=== PATIENT | female | born 1975 | race Caucasian/White ===

== ENCOUNTER → 2016-07-11 | Outpatient (CLI) | payer OTHER ==
[~2016-07-11] MED LIST: BACL-19 PO; OXYC-229 PO; OXYC5CAP4 PO; TAMS-11 PO
[2016-07-11 08:04] LABS: HEMOGLOBIN 14.4 g/dL (11.7-16.4)
== END | disposition home or self-care (01) ==
LOC: LAB 07:47
PROVIDERS: ATTEND Nurse Practitioner
DX: R53.83 Other fatigue (principal)
CPT/HCPCS: 36415; 85025; 86140; 86663; 86664; 86665

== ENCOUNTER → 2016-07-13 | Outpatient (CLI) | payer OTHER | END | disposition home or self-care (01) | LOC: RAD 11:10 | PROVIDERS: ATTEND Genetic Counselor, MS | DX: N20.0 Calculus of kidney (principal) | CPT/HCPCS: 76700 ==

== ENCOUNTER → 2016-07-22 | Outpatient (CLI) | payer OTHER | END | disposition home or self-care (01) | LOC: CFH 10:59 | PROVIDERS: ATTEND Obstetrics & Gynecology | DX: Z12.31 Encounter for screening mammogram for malignant neoplasm of breast (principal) | CPT/HCPCS: 77063; G0202 ==

== ENCOUNTER 2016-09-28 07:51 | Emergency (ER) | payer OTHER ==
[~2016-09-28] VITALS: Ht 177.8 cm; Wt 82.5 kg
[2016-09-28 07:53] VITALS: BP 128/91
== END 2016-09-28 09:20 | disposition home or self-care (01) ==
LOC: ED 08:33
DX: S50.02XA Contusion of left elbow, initial encounter (principal); S54.22XA Injury of radial nerve at forearm level, left arm, initial encounter; W01.0XXA Fall on same level from slipping, tripping and stumbling without subsequent striking against object, initial encounter; Y93.01 Activity, walking, marching and hiking; Y92.89 Other specified places as the place of occurrence of the external cause; Y99.8 Other external cause status
CPT/HCPCS: 99284

== ENCOUNTER 2016-09-30 10:30 | Day surgery (SDC) | payer OTHER ==
[2016-09-30] MEDS ORDERED: OMNIPAQUE 300 MG/ML, 10ML VIAL ONE (11:00)
[2016-09-30] MEDS ORDERED: BUPIVACAINE/PF 0.5% ONE (11:14)
[2016-09-30] MEDS ORDERED: methylPREDNISolone*ACETATE* 80 MG/ML ONE (11:15)
[2016-09-30] MEDS ORDERED: methylPREDNISolone *ACETATE* 40 MG/ML ONE (11:15)
== END 2016-09-30 17:00 | disposition home or self-care (01) ==
LOC: RAD 10:30
PROVIDERS: ATTEND Anesthesiology Pain Medicine
DX: G51.3 Clonic hemifacial spasm (principal)
CPT/HCPCS: 64479; 64480; C1729; J1030; J1040; J3490; Q9967

== ENCOUNTER → 2016-12-09 | Outpatient (CLI) | payer BC, OTHER ==
[~2016-12-09] MED LIST changes: -OXYC-229 PO; +OXYC-307 PO; +OXYC5CAP2 PO; -OXYC5CAP4 PO
== END | disposition home or self-care (01) ==
LOC: CVU 12:47
PROVIDERS: ATTEND Internal Medicine Cardiovascular Disease
DX: I83.813 Varicose veins of bilateral lower extremities with pain (principal)
CPT/HCPCS: 93922; 93970

== ENCOUNTER → 2017-05-22 | Outpatient (CLI) | payer OTHER ==
[2017-05-22 07:11] LABS: BASOPHILS # (AUTO) 0.03 x10^3/uL (0-0.1); BASOPHILS % (AUTO) 1 % (0-1); EOSINOPHILS # (AUTO) 0.12 x10^3/uL (0-0.4); EOSINOPHILS % (AUTO) 2 % (1-7); LYMPHOCYTES # (AUTO) 1.36 x10^3/uL (1-3.4); LYMPHOCYTES % (AUTO) 24 % (22-44); MD NO; MEAN CORPUSCULAR HEMOGLOBIN 32.6 pg (27.0-34.8); MEAN CORPUSCULAR HGB CONC 33.5 g/dL (32.4-35.8); MEAN CORPUSCULAR VOLUME 97.5 fL (80-100); MEAN PLATELET VOLUME 9.2 fL (7.4-10.4); MONOCYTES # (AUTO) 0.32 x10^3/uL (0.2-0.8); MONOCYTES % (AUTO) 6 % (2-9); NEUTROPHILS # (AUTO) 3.89 x10^3/uL (1.8-6.8); NEUTROPHILS % (AUTO) 68 % (42-75); PLATELET COUNT 197 x10^3/uL (130-400); RED BLOOD COUNT 4.48 x10^6/uL (3.82-5.3); RED CELL DISTRIBUTION WIDTH 13.4 % (9.6-15.2)
[2017-05-22 07:25] LABS: ALANINE AMINOTRANSFERASE 22 U/L (12-78); ALBUMIN 3.8 g/dL (3.4-5.0); ANION GAP 7 mmol/L (5-15); CALCIUM 8.8 mg/dL (8.5-10.1); CHLORIDE 110 mmol/L (98-107); CHOLESTEROL, TOTAL 145 mg/dL (140-239); CREATININE 0.91 mg/dL (0.55-1.02); TRIGLYCERIDES 98 mg/dL (50-200); VLDL CHOLESTEROL 20 mg/dL (0-25)
[2017-05-22 07:40] LABS: ALKALINE PHOSPHATASE 66 U/L (45-117); BILIRUBIN,TOTAL 0.5 mg/dL (0.2-1.0); HDL CHOL % 34 % (28-40); HDL CHOLESTEROL (DIRECT) 49 mg/dL (40-60); LDL CHOLESTEROL,CALCULATED 76 mg/dL (54-169); LDL/HDL RATIO 1.6 (0.5-3.0); TOTAL PROTEIN 7.3 g/dL (6.4-8.2)
== END | disposition home or self-care (01) ==
LOC: LAB 07:00
PROVIDERS: ATTEND Nurse Practitioner
DX: Z00.00 Encounter for general adult medical examination without abnormal findings (principal)
CPT/HCPCS: 36415; 80053; 80061; 84443; 85025

== ENCOUNTER → 2017-05-24 | Outpatient (CLI) | payer OTHER | LOC: RAD 11:10 | PROVIDERS: ATTEND Anesthesiology Pain Medicine | DX: M79.622 Pain in left upper arm (principal) ==

== ENCOUNTER → 2018-04-24 | Outpatient (CLI) | payer OTHER ==
[~2018-04-24] MED LIST changes: +DICLOFEN GEL TP; +OXYCODONE HCL PO; +OXYCONTIN PO; +SERT50TA PO
[2018-04-24 15:35] LABS: MICROSCOPIC NOT IND
[2018-04-24 15:39] LABS: CULTURE INDICATED? NO
[2018-04-24 15:44] LABS: BASOPHILS % (AUTO) 2 % (0-1); EOSINOPHILS # (AUTO) 0.16 x10^3/uL (0-0.4); EOSINOPHILS % (AUTO) 3 % (1-7); LYMPHOCYTES # (AUTO) 1.45 x10^3/uL (1-3.4); LYMPHOCYTES % (AUTO) 23 % (22-44); MD NO; MEAN CORPUSCULAR HEMOGLOBIN 32.7 pg (27.0-34.8); MEAN CORPUSCULAR HGB CONC 33.4 g/dL (32.4-35.8); MEAN CORPUSCULAR VOLUME 97.9 fL (80-100); MEAN PLATELET VOLUME 9.8 fL (7.4-10.4); MONOCYTES % (AUTO) 6 % (2-9); NEUTROPHILS # (AUTO) 4.18 x10^3/uL (1.8-6.8); NEUTROPHILS % (AUTO) 67 % (42-75); PLATELET COUNT 209 x10^3/uL (130-400); RED BLOOD COUNT 4.09 x10^6/uL (3.82-5.3); RED CELL DISTRIBUTION WIDTH 13.7 % (9.6-15.2)
[2018-04-24 15:51] LABS: ANION GAP 6 mmol/L (5-15); CALCIUM 8.7 mg/dL (8.5-10.1); CHLORIDE 106 mmol/L (98-107); CREATININE 0.77 mg/dL (0.55-1.02)
[2018-04-24 16:04] LABS: INTERNATIONAL NORMALIZED RATIO 0.99 (0.93-1.1); PROTHROMBIN TIME 10.5 Seconds (9.6-11.5)
== END | disposition home or self-care (01) ==
LOC: STAR 12:22
PROVIDERS: ATTEND Orthopaedic Surgery
DX: Z01.818 Encounter for other preprocedural examination (principal); G89.4 Chronic pain syndrome
CPT/HCPCS: 36415; 71046; 72100; 80048; 81003; 82306; 85025; 85610; 85730

== ENCOUNTER 2018-05-01 05:24 | Observation (INO) | payer OTHER ==
[2018-04-24 15:35] VITALS: BP 126/85
[~2018-05-01] VITALS: Ht 179.1 cm; Wt 94.5 kg
[2018-05-01] MEDS ORDERED: BUPIVACAINE/PF-EPI 0.5% 1:200K ONE (06:22)
[2018-05-01] MEDS ORDERED: THROMBIN 5,000 UNIT VIAL TP ONE (06:22)
[2018-05-01] MEDS ORDERED: BACITRACIN 50,000 UNIT ONE (06:22)
[2018-05-01] MEDS ORDERED: LIDOCAINE-MPF 1%, 2ML INFIL ONE (06:30)
[2018-05-01] MEDS: LACTATED RINGERS 1,000 ML IV SCH ×3 (06:41→23:52)
[2018-05-01] MEDS ORDERED: LABETALOL 5MG/ML, 20ML IVPush PRN (07:00)
[2018-05-01] MEDS ORDERED: ONDANSETRON 2MG/ML, 2ML IVPush PRN (07:00)
[2018-05-01] MEDS ORDERED: DIPHENHYDRAMINE 50 MG CAPSULE PO PRN (07:00)
[2018-05-01] MEDS ORDERED: ZOLPIDEM 5MG TABLET PO PRN (07:00)
[2018-05-01] MEDS ORDERED: DIPHENHYDRAMINE 50 MG/ML, 1ML IVPush PRN (07:00)
[2018-05-01] MEDS ORDERED: MAGNESIUM HYDROXIDE 8%, 30ML UDC PO PRN (07:00)
[2018-05-01] MEDS ORDERED: HYDROcodone/APAP 5/325 TABLET PO PRN (07:00)
[2018-05-01] MEDS ORDERED: PHARMACY MAY ADJ FOR RENAL FX MC PRN (07:00)
[2018-05-01] MEDS ORDERED: SENNA/DOCUSATE TABLET PO PRN (07:00)
[2018-05-01] MEDS ORDERED: MIDAZOLAM 1 MG/ML, 2ML ONE (07:04)
[2018-05-01] MEDS ORDERED: FENTANYL PF 250 MCG/5ML ONE (07:05)
[2018-05-01] MEDS ORDERED: ONDANSETRON ODT 8 MG PO PRN (08:00)
[2018-05-01] MEDS ORDERED: ACETAMINOPHEN 325 MG TABLET PO PRN (08:00)
[2018-05-01] MEDS ORDERED: PROMETHAZINE 25 MG/ML, 1ML IV PRN (08:00)
[2018-05-01] MEDS ORDERED: ONDANSETRON 2MG/ML, 2ML IV PRN (08:00)
[2018-05-01] MEDS ORDERED: OXYcodone 5 MG/5 ML ORAL.SOL UDC PO PRN (08:00)
[2018-05-01] MEDS ORDERED: PROMETHAZINE 12.5 MG SUPP PR PRN (08:00)
[2018-05-01] MEDS ORDERED: EPHEDRINE 50 MG/ML, 1ML IVPush PRN (08:00)
[2018-05-01] MEDS ORDERED: MIDAZOLAM 1 MG/ML, 2ML IV PRN (08:00)
[2018-05-01] MEDS ORDERED: MEPERIDINE/PF 25MG/0.5ML IVPush PRN (08:00)
[2018-05-01] MEDS ORDERED: ALBUTEROL SULFATE 2.5 MG/3 ML NPPB PRN (08:00)
[2018-05-01] MEDS ORDERED: HALOPERIDOL 5 MG/ML IV PRN (08:00)
[2018-05-01] MEDS ORDERED: LABETALOL 5MG/ML, 20ML IV PRN (08:00)
[2018-05-01] MEDS ORDERED: hydrALAzine 20 MG/ML, 1ML IV PRN (08:00)
[2018-05-01 08:01] LABS: HCG UR SG 1.022 (1.003-1.030)
[2018-05-01] MEDS ORDERED: VANCOMYCIN 1,000 MG ONE (08:20)
[2018-05-01] MEDS ORDERED: ONDANSETRON 2MG/ML, 2ML ONE ×2 (08:31)
[2018-05-01] MEDS ORDERED: DEXAMETHASONE 4 MG/ML, 1ML ONE ×2 (08:31)
[2018-05-01] MEDS ORDERED: CEFAZOLIN 1,000 MG ONE ×2 (08:31)
[2018-05-01] MEDS ORDERED: ROCURONIUM 10MG/ML,5ML ONE (08:31)
[2018-05-01] MEDS ORDERED: PROPOFOL 10 MG/ML, 20ML ONE (08:31)
[2018-05-01] MEDS ORDERED: SUCCINYLCHOLINE 20 MG/ML, 10ML ONE (08:31)
[2018-05-01] MEDS ORDERED: FENTANYL PF 100 MCG/2ML ONE (09:20)
[2018-05-01] MEDS ORDERED: HYDROmorphone 1 MG/ML, 1ML ONE ×3 (09:20→09:58)
[2018-05-01] MEDS: FENTANYL PF 100 MCG/2ML IV PRN ×2 (09:21→09:26)
[2018-05-01] MEDS: DIAZEPAM 5 MG/ML, 2ML IVPush PRN ×2 (09:33→10:00)
[2018-05-01] MEDS: HYDROmorphone 2 MG/ML, 1ML IVPush PRN ×6 (09:35→10:15)
[2018-05-01] MEDS ORDERED: METHOCARBAMOL 750 MG TABLET ONE (09:48)
[2018-05-01] MEDS ORDERED: OXYcodone 5 MG/5 ML ORAL.SOL UDC ONE (09:49)
[2018-05-01] MEDS: GABAPENTIN 300 MG CAPSULE PO SCH ×2 (09:50→17:09)
[2018-05-01] MEDS ORDERED: GABAPENTIN 300 MG CAPSULE ONE (10:05)
[2018-05-01] MEDS ORDERED: ACETAMINOPHEN 650 MG/20.3 ML UDC ONE (10:11)
[2018-05-01] MEDS ORDERED: MEPERIDINE/PF 25MG/ML,1ML ONE (10:30)
[2018-05-01] MEDS ORDERED: DIAZEPAM 5 MG/ML, 10ML VIAL IV ONE (11:00)
[2018-05-01] MEDS ORDERED: METHOCARBAMOL 750 MG TABLET PO PRN (11:00)
[2018-05-01] MEDS ORDERED: SODIUM CHLORIDE 0.9%, 500ML IVBOLUS ONE (13:00)
[2018-05-01] MEDS ORDERED: BACLOFEN 10 MG TABLET PO PRN (14:00)
[2018-05-01] MEDS: OXYcodone/APAP 5/325MG TABLET PO PRN ×3 (14:22→23:47)
[2018-05-01] MEDS: NS + 20MEQ KCL 1,000 ML IV SCH ×2 (14:23→17:00)
[2018-05-01] MEDS: CEFAZOLIN PMX 1GM/50ML 50 ML IVPB SCH (17:09)
[2018-05-01] MEDS: OxyconTIN ER 15 MG TAB.ER PO SCH (18:59)
[2018-05-01] MEDS: METHOCARBAMOL 750 MG TABLET PO SCH (19:24)
[2018-05-01 21:25] VITALS: BP 99/54
[2018-05-02] MEDS: GABAPENTIN 300 MG CAPSULE PO SCH ×2 (00:21→08:04)
[2018-05-02] MEDS: CEFAZOLIN PMX 1GM/50ML 50 ML IVPB SCH (00:21)
[2018-05-02] MEDS: NS + 20MEQ KCL 1,000 ML IV SCH (00:56)
[2018-05-02] MEDS: METHOCARBAMOL 750 MG TABLET PO SCH (03:02)
[2018-05-02 05:16] VITALS: BP 112/75
[2018-05-02 05:36] LABS: CALCIUM 7.9 mg/dL (8.5-10.1); CHLORIDE 111 mmol/L (98-107)
[2018-05-02 05:40] LABS: ALBUMIN 3.4 g/dL (3.4-5.0); ANION GAP 3 mmol/L (5-15); CREATININE 0.78 mg/dL (0.55-1.02)
[2018-05-02] MEDS: OXYcodone/APAP 5/325MG TABLET PO PRN ×2 (05:57→10:05)
[2018-05-02 07:28] VITALS: BP 104/76
[2018-05-02] MEDS: OxyconTIN ER 15 MG TAB.ER PO SCH (08:04)
[2018-05-02] MEDS ORDERED: GABA300C10 PO (08:32)
[2018-05-02] MEDS ORDERED: CEPH-368 PO (08:32)
[2018-05-02] MEDS ORDERED: SERTRALINE 50MG TABLET PO SCH (09:00)
== END 2018-05-02 10:20 | disposition home or self-care (01) ==
LOC: OUT 05:24 → ORIP 06:46 → 4NOR 13:38 → DCLOUNGE 05-02 10:13
PROVIDERS: ADMIT Orthopaedic Surgery; ATTEND Orthopaedic Surgery
DX: G89.4 Chronic pain syndrome (principal); R07.82 Intercostal pain; Z79.891 Long term (current) use of opiate analgesic
CPT/HCPCS: 36415; 63655; 63685; 72100; 80048; 81025; 82040; 93005; 95972; 96365; 96366; C1713; C1767; C1787; C1883; G0378; J0330; J0690; J1100; J1170; J2175; J2250; J2405; J2704; J3010; J3360; J3370; J3480; J7040; J7120

== ENCOUNTER → 2018-08-24 | Outpatient (CLI) | payer OTHER ==
[~2018-08-24] MED LIST changes: +CEPH-368 PO; +GABA300C10 PO
== END | disposition home or self-care (01) ==
LOC: CFH 13:29
PROVIDERS: ATTEND Obstetrics & Gynecology
DX: Z12.31 Encounter for screening mammogram for malignant neoplasm of breast (principal)
CPT/HCPCS: 77063; 77067

== ENCOUNTER → 2019-03-04 | Outpatient (CLI) | payer OTHER ==
[~2019-03-04] MED LIST changes: +GADOTERATE 10 MMOL/20 ML SYR ONE
== END | disposition home or self-care (01) ==
LOC: RAD 13:14
PROVIDERS: ATTEND Anesthesiology Pain Medicine
DX: M51.34 Other intervertebral disc degeneration, thoracic region (principal); M79.2 Neuralgia and neuritis, unspecified
CPT/HCPCS: 72157; A9575

== ENCOUNTER 2019-04-02 07:01 | Outpatient (CLI) | payer OTHER ==
[~2019-04-02 07:01] MED LIST changes: -GADOTERATE 10 MMOL/20 ML SYR ONE
[2019-04-02 07:22] LABS: BASOPHILS # (AUTO) 0.12 x10^3/uL (0-0.1); BASOPHILS % (AUTO) 2 % (0-1); EOSINOPHILS % (AUTO) 4 % (1-7); LYMPHOCYTES # (AUTO) 1.49 x10^3/uL (1-3.4); LYMPHOCYTES % (AUTO) 27 % (22-44); MD NO; MEAN CORPUSCULAR HEMOGLOBIN 32.2 pg (27.0-34.8); MEAN CORPUSCULAR HGB CONC 32.7 g/dL (32.4-35.8); MEAN CORPUSCULAR VOLUME 98.4 fL (80-100); MEAN PLATELET VOLUME 9.8 fL (7.4-10.4); MONOCYTES # (AUTO) 0.36 x10^3/uL (0.2-0.8); MONOCYTES % (AUTO) 7 % (2-9); NEUTROPHILS # (AUTO) 3.27 x10^3/uL (1.8-6.8); NEUTROPHILS % (AUTO) 60 % (42-75); PLATELET COUNT 189 x10^3/uL (130-400); RED CELL DISTRIBUTION WIDTH 13.4 % (9.6-15.2)
[2019-04-02 07:27] LABS: ALANINE AMINOTRANSFERASE 21 U/L (12-78); CHLORIDE 108 mmol/L (98-107)
[2019-04-02 07:52] LABS: ALBUMIN 3.8 g/dL (3.4-5.0); ALKALINE PHOSPHATASE 77 U/L (45-117); ANION GAP 7 mmol/L (5-15); BILIRUBIN,TOTAL 0.4 mg/dL (0.2-1.0); CALCIUM 8.4 mg/dL (8.5-10.1); CHOL/HDL RATIO 3.9; CHOLESTEROL, TOTAL 175 mg/dL (140-239); CREATININE 0.96 mg/dL (0.55-1.02); FOLATE LEVEL 10.5 ng/mL (3.1-17.5); HDL CHOL % 26 % (28-40); HDL CHOLESTEROL (DIRECT) 45 mg/dL (40-60); LDL CHOLESTEROL,CALCULATED 109 mg/dL (54-169); LDL/HDL RATIO 2.4 (0.5-3.0); TOTAL PROTEIN 6.9 g/dL (6.4-8.2); TRIGLYCERIDES 103 mg/dL (50-200); VLDL CHOLESTEROL 21 mg/dL (0-25)
== END 2019-04-02 23:59 | disposition home or self-care (01) ==
LOC: LAB 07:01
PROVIDERS: ATTEND Nurse Practitioner
DX: Z00.00 Encounter for general adult medical examination without abnormal findings (principal); R53.83 Other fatigue
CPT/HCPCS: 36415; 80053; 80061; 82306; 82607; 82670; 82746; 83001; 83002; 84144; 84443; 85025

== ENCOUNTER → 2019-11-22 | Outpatient (CLI) | payer OTHER | END | disposition home or self-care (01) | LOC: CFH 13:04 | PROVIDERS: ATTEND Nurse Practitioner | DX: Z12.31 Encounter for screening mammogram for malignant neoplasm of breast (principal) | CPT/HCPCS: 77063; 77067 ==

== ENCOUNTER → 2019-12-27 | Outpatient (CLI) | payer OTHER ==
[2019-12-27 07:56] LABS: BASOPHILS # (AUTO) 0.01 x10^3/uL (0-0.1); BASOPHILS % (AUTO) 0 % (0-1); EOSINOPHILS # (AUTO) 0.09 x10^3/uL (0-0.4); EOSINOPHILS % (AUTO) 2 % (1-7); LYMPHOCYTES # (AUTO) 0.59 x10^3/uL (1-3.4); LYMPHOCYTES % (AUTO) 14 % (22-44); MD NO; MEAN CORPUSCULAR HEMOGLOBIN 31.9 pg (27.0-34.8); MEAN CORPUSCULAR HGB CONC 33.2 g/dL (32.4-35.8); MEAN PLATELET VOLUME 9.5 fL (7.4-10.4); MONOCYTES # (AUTO) 0.28 x10^3/uL (0.2-0.8); MONOCYTES % (AUTO) 7 % (2-9); NEUTROPHILS # (AUTO) 3.28 x10^3/uL (1.8-6.8); NEUTROPHILS % (AUTO) 77 % (42-75); PLATELET COUNT 177 x10^3/uL (130-400); RED BLOOD COUNT 3.84 x10^6/uL (3.82-5.3); RED CELL DISTRIBUTION WIDTH 13.4 % (9.6-15.2)
[2019-12-27 08:04] LABS: ALBUMIN 3.6 g/dL (3.4-5.0); ANION GAP 6 mmol/L (5-15); CALCIUM 8.6 mg/dL (8.5-10.1); CHLORIDE 109 mmol/L (98-107)
[2019-12-27 08:17] LABS: ALANINE AMINOTRANSFERASE 22 U/L (12-78); ALKALINE PHOSPHATASE 81 U/L (45-117); BILIRUBIN,TOTAL 0.3 mg/dL (0.2-1.0); CHOL/HDL RATIO 2.9; CHOLESTEROL, TOTAL 173 mg/dL (140-239); CREATININE 0.83 mg/dL (0.55-1.02); HDL CHOL % 35 % (28-40); HDL CHOLESTEROL (DIRECT) 60 mg/dL (40-60); LDL CHOLESTEROL,CALCULATED 104 mg/dL (54-169); LDL/HDL RATIO 1.7 (0.5-3.0); TOTAL PROTEIN 6.8 g/dL (6.4-8.2); TRIGLYCERIDES 47 mg/dL (50-200); VLDL CHOLESTEROL 9 mg/dL (0-25)
== END | disposition home or self-care (01) ==
LOC: LAB 07:40
PROVIDERS: ATTEND Nurse Practitioner
DX: Z00.00 Encounter for general adult medical examination without abnormal findings (principal)
CPT/HCPCS: 36415; 80053; 80061; 84443; 85025

== ENCOUNTER 2020-01-18 16:49 | Emergency (ER) | payer OTHER ==
[~2020-01-18] VITALS: Ht 154.9 cm; Wt 90.0 kg
[2020-01-18] MEDS ORDERED: HYDROmorphone 1 MG/ML, 1ML INJ ONE (17:12)
[2020-01-18] MEDS ORDERED: ONDANSETRON 2MG/ML, 2ML ONE (17:12)
[2020-01-18] MEDS ORDERED: OMNIPAQUE 350 MG/ML, 100ML BOTTLE ONE (17:15)
--- NOTE | 2020-01-18 17:24 | NUR ---
TO AND FROM CT TO R/O AAA . VITALY IN ROOM FOR EVAL.
[2020-01-18] MEDS ORDERED: SODIUM CHLORIDE 0.9% 1,000 ML IV ONE (17:30)
[2020-01-18] MEDS ORDERED: ONDANSETRON 2MG/ML, 2ML IVPush ONE (17:30)
[2020-01-18] MEDS ORDERED: HYDROmorphone 2 MG/ML, 1ML IVPush PRN (17:30)
--- NOTE | 2020-01-18 17:35 | NUR ---
IVF INFUSING, VSS, TACHY 100S LABS PENDING AT BEDSIDE.
[2020-01-18 17:36] LABS: BASOPHILS % (AUTO) 0 % (0-1); EOSINOPHILS % (AUTO) 2 % (1-7); LYMPHOCYTES % (AUTO) 18 % (22-44); MEAN CORPUSCULAR HEMOGLOBIN 31.3 pg (27.0-34.8); MEAN CORPUSCULAR HGB CONC 32.9 g/dL (32.4-35.8); MEAN PLATELET VOLUME 10.2 fL (7.4-10.4); MONOCYTES % (AUTO) 9 % (2-9); NEUTROPHILS % (AUTO) 72 % (42-75); PLATELET COUNT 173 x10^3/uL (130-400); RED BLOOD COUNT 3.81 x10^6/uL (3.82-5.3); RED CELL DISTRIBUTION WIDTH 13.2 % (9.6-15.2)
[2020-01-18 17:39] LABS: MD NO
[2020-01-18 17:44] LABS: ALANINE AMINOTRANSFERASE 86 U/L (12-78); ALBUMIN 3.4 g/dL (3.4-5.0); ANION GAP 5 mmol/L (5-15); CALCIUM 8.3 mg/dL (8.5-10.1); CHLORIDE 103 mmol/L (98-107); CREATININE 0.86 mg/dL (0.55-1.02)
[2020-01-18 17:48] LABS: ALKALINE PHOSPHATASE 150 U/L (45-117); BILIRUBIN,TOTAL 0.5 mg/dL (0.2-1.0); TOTAL PROTEIN 6.6 g/dL (6.4-8.2); TROPONIN I < 0.015 ng/mL (0.000-0.045)
[2020-01-18] MEDS ORDERED: FENTANYL PF 100 MCG/2ML ONE (17:57)
[2020-01-18] MEDS ORDERED: FENTANYL PF 100 MCG/2ML IVPush ONE (18:00)
--- NOTE | 2020-01-18 18:21 | NUR ---
SOUMYA WALKED TO LAB, FENTANYL PER MAY, CORBIN BLACK AT BEDSIDE, PROBABLY ADMIT. PT STILL IN A LOT OF PAIN.
[2020-01-18 18:30] LABS: MICROSCOPIC AUTO
[2020-01-18 18:45] LABS: HCG UR SG > 1.045 (1.003-1.030)
--- NOTE | 2020-01-18 18:56 | NUR ---
REPORT FROM MADI GRISSOM. PT GIVEN ICE CHIPS. OK PER ERP. MD AT BEDSIDE. CALL LIGHT IN REACH
--- NOTE | 2020-01-18 18:57 | NUR ---
REPORT TO CANDACE GRISSOM.
--- NOTE | 2020-01-18 19:52 | NUR ---
Patient given discharge instructions and they have confirmed that they understand the instructions. Patient ambulatory with steady gait.
[2020-01-18 19:53] VITALS: BP 139/83
== END 2020-01-18 19:56 | disposition home or self-care (01) ==
LOC: ED 18:09
DX: R10.13 Epigastric pain (principal); R11.2 Nausea with vomiting, unspecified
CPT/HCPCS: 36415; 71275; 74175; 80053; 81001; 81025; 83605; 83690; 84484; 85025; 87086; 93005; 96361; 96374; 96375; 99285; J1170; J2405; J3010; J7030; Q9967

== ENCOUNTER → 2020-03-23 | Outpatient (CLI) | payer OTHER ==
[2020-03-23 11:25] LABS: BASOPHILS % (AUTO) 1 % (0-1); EOSINOPHILS % (AUTO) 1 % (1-7); LYMPHOCYTES % (AUTO) 21 % (22-44); MEAN CORPUSCULAR HEMOGLOBIN 31.8 pg (27.0-34.8); MEAN CORPUSCULAR HGB CONC 33.7 g/dL (32.4-35.8); MEAN PLATELET VOLUME 9.3 fL (7.4-10.4); MONOCYTES % (AUTO) 7 % (2-9); NEUTROPHILS % (AUTO) 70 % (42-75); PLATELET COUNT 209 x10^3/uL (130-400); RED BLOOD COUNT 3.87 x10^6/uL (3.82-5.3); RED CELL DISTRIBUTION WIDTH 13.4 % (9.6-15.2)
[2020-03-23 11:36] LABS: ALANINE AMINOTRANSFERASE 21 U/L (12-78); ALBUMIN 3.9 g/dL (3.4-5.0); ANION GAP 6 mmol/L (5-15); CALCIUM 8.5 mg/dL (8.5-10.1); CHLORIDE 107 mmol/L (98-107); CREATININE 0.89 mg/dL (0.55-1.02)
[2020-03-23 11:38] LABS: ALKALINE PHOSPHATASE 93 U/L (45-117); BILIRUBIN,TOTAL 0.3 mg/dL (0.2-1.0); TOTAL PROTEIN 6.9 g/dL (6.4-8.2)
[2020-03-23 11:52] LABS: MD NO
== END | disposition home or self-care (01) ==
LOC: LAB 11:09
PROVIDERS: ATTEND Internal Medicine
DX: R94.5 Abnormal results of liver function studies (principal); D72.810 Lymphocytopenia
CPT/HCPCS: 36415; 80053; 85025

== ENCOUNTER → 2020-03-24 | Outpatient (CLI) | payer OTHER | END | disposition home or self-care (01) | LOC: RAD 07:21 | PROVIDERS: ATTEND Internal Medicine | DX: R94.5 Abnormal results of liver function studies (principal); R10.10 Upper abdominal pain, unspecified | CPT/HCPCS: 76700 ==

== ENCOUNTER → 2020-07-21 | Outpatient (CLI) | payer OTHER ==
[~2020-07-21] MED LIST changes: -OXYC-307 PO; +OXYC-380 PO
== END | disposition home or self-care (01) ==
LOC: RAD 06:46
PROVIDERS: ATTEND Physician Assistant
DX: N39.0 Urinary tract infection, site not specified (principal); R30.0 Dysuria
CPT/HCPCS: 74018

== ENCOUNTER → 2020-09-29 | Outpatient (CLI) | payer OTHER | END | disposition home or self-care (01) | LOC: RAD 14:11 | PROVIDERS: ATTEND Physician Assistant | DX: N20.0 Calculus of kidney (principal) | CPT/HCPCS: 76770 ==

== ENCOUNTER 2020-11-18 07:29 | Outpatient (CLI) | payer OTHER ==
[2020-11-18 08:01] LABS: MEAN CORPUSCULAR HEMOGLOBIN 31.1 pg (27.0-34.8); MEAN CORPUSCULAR HGB CONC 33.1 g/dL (32.4-35.8); MEAN PLATELET VOLUME 8.7 fL (7.4-10.4); PLATELET COUNT 219 x10^3/uL (130-400); RED BLOOD COUNT 3.87 x10^6/uL (3.82-5.3); RED CELL DISTRIBUTION WIDTH 13.9 % (9.6-15.2)
[2020-11-18 08:14] LABS: ALANINE AMINOTRANSFERASE 22 U/L (12-78); ALBUMIN 3.6 g/dL (3.4-5.0); ANION GAP 4 mmol/L (5-15); CALCIUM 8.7 mg/dL (8.5-10.1); CHLORIDE 103 mmol/L (98-107); CREATININE 0.77 mg/dL (0.55-1.02)
[2020-11-18 08:24] LABS: ALKALINE PHOSPHATASE 95 U/L (45-117); BILIRUBIN,TOTAL 0.3 mg/dL (0.2-1.0); CHOL/HDL RATIO 2.8; CHOLESTEROL, TOTAL 166 mg/dL (140-239); HDL CHOL % 36 % (28-40); HDL CHOLESTEROL (DIRECT) 59 mg/dL (40-60); LDL CHOLESTEROL,CALCULATED 97 mg/dL (54-169); LDL/HDL RATIO 1.6 (0.5-3.0); TOTAL PROTEIN 6.9 g/dL (6.4-8.2); TRIGLYCERIDES 51 mg/dL (50-200); VLDL CHOLESTEROL 10 mg/dL (0-25)
== END 2020-11-18 23:59 | disposition home or self-care (01) ==
LOC: LAB 07:29
PROVIDERS: ATTEND Family Medicine
DX: N95.1 Menopausal and female climacteric states (principal); F41.8 Other specified anxiety disorders; R32 Unspecified urinary incontinence
CPT/HCPCS: 36415; 80053; 80061; 82306; 84443; 85027